=== PATIENT | female | born 2000 | race Caucasian/White ===

== ENCOUNTER 2024-02-28 08:30 | Inpatient (IN) | payer OTHER ==
[~2024-02-28] VITALS: Ht 172.7 cm; Wt 104.3 kg
[~2024-02-28 08:30] MED LIST: TRANEXAMIC ACID 1,000 MG/10 ML VIAL ONE
[2024-02-28] MEDS ORDERED: DEXTROSE 50% 50 ML SYR IVP PRN (09:10)
[2024-02-28 09:27] LABS: BASOPHILS % (AUTO) 0.4 % (0.0-2.0); EOSINOPHILS # (AUTO) 0.2 K/uL (0-0.4); EOSINOPHILS % (AUTO) 1.7 % (0.0-4.0); HEMATOCRIT 32.7 % (36-48); HEMOGLOBIN 10.9 g/dL (12.0-16.0); LYMPHOCYTES # (AUTO) 2.1 K/uL (2.5-16.5); MEAN CORPUSCULAR HEMOGLOBIN 26 pg (27-31); MEAN CORPUSCULAR HGB CONC 33 g/dL (33-37); MEAN CORPUSCULAR VOLUME 78.5 fL (80-94); MONOCYTES # (AUTO) 0.8 K/uL (0.8-1.0); MONOCYTES % (AUTO) 7.9 % (1.7-9.3); NEUTROPHILS # (AUTO) 6.5 K/uL (1.8-7.7); PLATELET COUNT (AUTO) 332 K/uL (140-450); RED BLOOD CELL COUNT(AUTO) 4.16 MIL/uL (4.20-5.40); RED CELL DISTRIBUTION WIDTH 15.6 % (11.6-13.7); WHITE BLOOD COUNT (AUTO) 9.6 K/uL (4.8-10.8)
[2024-02-28 09:28] LABS: APPEARANCE,URINE CLEAR (CLEAR); BILIRUBIN,URINE NEGATIVE (NEGATIVE); BLOOD, URINE NEGATIVE (NEGATIVE); COLOR,URINE YELLOW (YELLOW); LEUKOCYTE ESTERASE ,URINE NEGATIVE (NEGATIVE); NITRITE, URINE NEGATIVE (NEGATIVE); PH,URINE 6.5 (5.0-9.0); PROTEIN,URINE NEGATIVE (NEGATIVE); UGLUCOSE NEGATIVE (NEGATIVE); UROBILINOGEN,URINE 0.2 EU/dL (0.2 - 1)
[2024-02-28 09:49] LABS: ALBUMIN 2.5 g/dL (3.4-5.0); ANION GAP 13.6 (8-16); CALCIUM 8.2 mg/dL (8.5-10.1); CARBON DIOXIDE 22.4 mmol/L (21-32); CREATININE 0.6 mg/dL (0.6-1.3); TOTAL BILIRUBIN 0.3 mg/dL (0.0-1.0)
[2024-02-28] MEDS: NACL 0.9% 1,000 ML IV SCH ×2 (09:57→11:06)
[2024-02-28 10:02] LABS: INR 0.84 (0.8-1.2); PARTIAL THROMBOPLASTIN TIME 24.5 secs (22-35.6); PROTHROMBIN TIME 8.9 secs (10.8-13.4)
[2024-02-28] MEDS ORDERED: ONDANSETRON 4 MG/2 ML VIAL IVP PRN ×2 (10:05)
[2024-02-28] MEDS ORDERED: NALBUPHINE 10 MG/ML AMP IVP PRN (10:05)
[2024-02-28] MEDS ORDERED: HYDROmorphone 1 MG/ML AMP IVP PRN ×2 (10:05)
[2024-02-28] MEDS ORDERED: NALOXONE 0.4 MG/ML VIAL IVP PRN ×3 (10:05)
[2024-02-28] MEDS ORDERED: diphenhydrAMINE 50 MG/ML VIAL IVP PRN ×2 (10:05)
[2024-02-28] MEDS ORDERED: OXYTOCIN/0.9 % SODIUM CHLORIDE 500 ML IV SCH (10:05)
[2024-02-28] MEDS ORDERED: KETAMINE 500 MG/5 ML VIAL ONE (10:29)
[2024-02-28] MEDS ORDERED: BLOOD GLUCOSE MONITORING 1 DEV DEV FS SCH (10:30)
[2024-02-28] MEDS ORDERED: MIDAZOLAM 2 MG/2 ML VIAL ONE (10:30)
[2024-02-28] MEDS ORDERED: MORPHINE PRES FREE 10 MG/10 ML AMP IV ONE (10:31)
[2024-02-28] MEDS: DEXT 5% /NACL 0.9% 1,000 ML IV SCH (10:44)
[2024-02-28] MEDS ORDERED: IBUPROFEN 800 MG TAB PO PRN (12:10)
[2024-02-28] MEDS ORDERED: TEMAZEPAM 15 MG CAP PO PRN (12:10)
[2024-02-28] MEDS ORDERED: METHYLERGONOVINE 0.2 MG/ML AMP IM PRN (12:10)
[2024-02-28] MEDS ORDERED: oxyCODONE/APAP 5/325 MG 1 TAB TAB PO PRN ×2 (12:10)
[2024-02-28] MEDS ORDERED: OXYTOCIN 20 UNITS in LACTATED RINGERS 1,000 ML IV SCH (12:10)
[2024-02-28] MEDS ORDERED: KETOROLAC 30 MG/ML VIAL IVP PRN (12:10)
[2024-02-28] MEDS: ceFAZolin 2,000 MG VIAL IVP ONE (12:33)
[2024-02-28] MEDS: ACETAMINOPHEN 100 ML IV SCH (13:32)
[2024-02-28] MEDS: DOCUSATE SOD/SENNA 50/8.6 MG 1 TAB PO SCH (21:00)
[2024-02-28] MEDS: ACETAMINOPHEN 100 ML IV PRN (21:28)
[2024-02-29] MEDS: FAMOTIDINE 20 MG TAB PO ONE (00:48)
[2024-02-29] MEDS: OXYTOCIN/0.9 % SODIUM CHLORIDE 500 ML IV SCH (02:19)
[2024-02-29 08:03] LABS: BASOPHILS % (AUTO) 0.3 % (0.0-2.0); EOSINOPHILS # (AUTO) 0.1 K/uL (0-0.4); EOSINOPHILS % (AUTO) 0.8 % (0.0-4.0); HEMATOCRIT 30.5 % (36-48); HEMOGLOBIN 9.9 g/dL (12.0-16.0); LYMPHOCYTES # (AUTO) 2.2 K/uL (2.5-16.5); LYMPHOCYTES % (AUTO) 17.3 % (20.5-51.1); MEAN CORPUSCULAR HEMOGLOBIN 26 pg (27-31); MEAN CORPUSCULAR HGB CONC 33 g/dL (33-37); MEAN CORPUSCULAR VOLUME 79.2 fL (80-94); MONOCYTES # (AUTO) 0.8 K/uL (0.8-1.0); MONOCYTES % (AUTO) 6.3 % (1.7-9.3); NEUTROPHILS # (AUTO) 9.4 K/uL (1.8-7.7); NEUTROPHILS % (AUTO) 75.3 % (42.2-75.2); PLATELET COUNT (AUTO) 280 K/uL (140-450); RED BLOOD CELL COUNT(AUTO) 3.86 MIL/uL (4.20-5.40); RED CELL DISTRIBUTION WIDTH 15.6 % (11.6-13.7); WHITE BLOOD COUNT (AUTO) 12.5 K/uL (4.8-10.8)
[2024-02-29] MEDS: SIMETHICONE 80 MG TAB.CHEW PO PRN (08:43)
[2024-02-29] MEDS ORDERED: ACETAMINOPHEN 325 MG TAB PO PRN (11:00)
[2024-02-29] MEDS: ACETAMINOPHEN 325 MG TAB PO SCH (11:00)
[2024-02-29] MEDS ORDERED: ACETAMINOPHEN 325 MG TAB ONE (17:21)
[2024-02-29] MEDS: FAMOTIDINE 20 MG TAB PO SCH (21:54)
[2024-02-29] MEDS: ACETAMINOPHEN 325 MG TAB ONE (23:55)
[2024-03-01] MEDS: ACETAMINOPHEN 325 MG TAB PO SCH (06:08)
[2024-03-01 12:24] LABS: HEMATOCRIT 29.9 % (36-48); HEMOGLOBIN 9.9 g/dL (12.0-16.0)
== END 2024-03-01 14:40 | disposition home or self-care (01) | DRG 788 ==
LOC: MLD 08:30 → MFCC 14:00
PROVIDERS: ADMIT Obstetrics & Gynecology; ATTEND Obstetrics & Gynecology
PROC: 10D00Z1 Extraction of Products of Conception, Low, Open Approach (ICD-10-PCS; principal; 2024-02-28 11:30)
DX: O34.211 Maternal care for low transverse scar from previous cesarean delivery (principal); Z37.0 Single live birth; Z3A.39 39 weeks gestation of pregnancy
CPT/HCPCS: 36415; 80053; 81003; 82948; 85018; 85025; 85610; 85730; 86592; 86886; 86900; 86901; 87081; J0690; J2250; J2270; J2590; J3490; J7030; J7060; J7120